=== PATIENT | male | born 1965 | race Two or more races ===

== ENCOUNTER 2019-07-07 12:06 | Inpatient (IN) | payer BC ==
[2019-07-07 15:08] VITALS: BMI 20.2
--- NOTE | 2019-07-07 16:07 | HP ---
"COWS - Scale Resting Pulse: 1= MA 81-100 Sweatin=Flushed/Facial Moisture Restless Observation: 0= Sits Still Pupil Size: 2= Moderately Dilated (Pupils = 4 mm) Bone or Joint Aches: 0= None Runny Nose/ Eye Tearin= Nasal Congestion GI Upset > 30mins: 0= None Tremor Observation: 2= Slight Tremor Visible Yawning Observation: 0= None Anxiety or Irritability: 1=Feels Anxious/Irritable Goose Flesh Skin: 0=Smooth Skin COWS Score: 9 CIWA Score Nausea/Vomitin-No Nausea/No Vomiting Muscle Tremors: 3 Anxiety: 3 Agitation: 3 Paroxysmal Sweats: 3 Orientation: 0-Oriented Tacttile Disturbances: 0-None Auditory Disturbances: 0-None Visual Disturbances: 0-None Headache: 0-None Present CIWA-Ar Total Score: 12 - Admission Criteria OAS Guidelines: Admission for Medically Managed Detox: Requires at least one of the followin. CIWA greater than 12 2. Seizures within the past 24 hours 3. Delirium tremens within the past 24 hours 4. Hallucinations within the past 24 hours 5. Acute intervention needed for co occurring medical disorder 6. Acute intervention needed for co occurring psychiatric disorder 7. Severe withdrawal that cannot be handled at a lower level of care (continued vomiting, continued diarrhea, abnormal vital signs) requiring intravenous medication and/or fluids 8. Patient presents the following: CIWA greater than 12 Admission Criteria Met: Admission criteria met Admission ROS [facility] Chief Complaint: I'm having heroin withdrawal. I feel sick. Allergies/Adverse Reactions: Allergies Allergy/AdvReac Type Severity Reaction Status Date / Time No Known Allergies Allergy Verified 07/07/19 15:01 History of Present Illness: 53 yo presents w/ heroin withdrawal and seeking detox. DEBBY: 0.010 UTox: THC/GAVIOTA/OPI Alcohol use began at age 30. Currently drinks 4-5 32 oz beers daily. Heroin use began at age 30. Currently uses 10 bags, nasally. Denies hx overdose. States last used at 9 am. Crack use began at age 40. Currently 4-5 bags daily. Marijuana use began at age 20's. Daily use. Nicotine use began at age 20. 2-3 cig/day. Denies seizures. Occ blackouts. Last time 6 months ago. Stopped while incarcerated x 6 months, 5 years ago. PMHx: Denies MHHx: Denies depression or other MH problems. Denies thoughts of harming self or others. Search Terms: SONNY MORAN, 1965 Search Date: 07/07/2019 04:02:32 PM The Drug Utilization Report below displays all of the controlled substance prescriptions, if any, that your patient has filled in the last twelve months. The information displayed on this report is compiled from pharmacy submissions to the Department, and accurately reflects the information as submitted by the pharmacies. This report was requested by: Susan Biswas | Reference #: [id number] There are no results for the search terms that you entered. Search Terms: Sonny Moran, 1965 Search Date: 07/07/2019 03:56:40 PM States Searched: [place], [place], [place], [place], [place], [place], [place] The Drug Utilization Report below displays the controlled substance prescriptions, if any, that were dispensed in the indicated state(s). The information displayed on this report is compiled from requests submitted to other states' PMPs, and accurately reflects the information as returned by them. Blank vann indicate data not provided by other state. This report was requested by: Susan Biswas | Reference #: [id number] Exam Limitations: No Limitations - Ebola screening Have you traveled outside of the country in the last 21 days: No Have you had contact with anyone from an Ebola affected area: No Do you have a fever: No - Review of Systems Constitutional: Chills EENT: reports: Blurred Vision, Dental Problems (Missing/messed up. Chews and swallows ok.) Respiratory: reports: No Symptoms reported Cardiac: reports: No Symptoms Reported GI: reports: No Symptoms Reported : reports: No Symptoms Reported Musculoskeletal: reports: No Symptoms Reported Integumentary: reports: No Symptoms Reported Neuro: reports: No Symptoms reported Endocrine: reports: No Symptoms Reported Hematology: reports: No Symptoms Reported Psychiatric: reports: Orientated x3, Anxious Patient History - PPD History Previous Implant?: Yes (Will order TB Gold test) Documented Results: Negative w/o proof Implanted On Prior [facility] Admission?: No PPD to be Administered?: No - Smoking Cessation Smoking history: Current every day smoker Have you smoked in the past 12 months: Yes Aproximately how many cigarettes per day: 3 Hx Chewing Tobacco Use: No Initiated information on smoking cessation: Yes 'Breaking Loose' booklet given: 07/07/19 - Substance & Tx. History Hx Alcohol Use: Yes Hx Substance Use: Yes Substance Use Type: Alcohol, Cocaine, Heroin Hx Substance Use Treatment: Yes (detox, rehab, past [facility]) - Substances abused Heroin Substance route: Inhalation Frequency: Daily Amount used: 10bags Age of first use: 30 Date of last use: 07/07/19 Alcohol Substance route: Oral Frequency: Daily Amount used: beer- 3 40oz cans Age of first use: 30 Date of last use: 07/07/19 Crack Substance route: Smoking Frequency: Daily Amount used: $40 Age of first use: 30 Date of last use: 07/06/19 Admission Physical Exam [facility] - Vital Signs Vital Signs: Vital Signs - 24 hr 07/07/19 07/07/19 14:58 15:27 Temperature 97.7 F 97.7 F Pulse Rate 81 81 Respiratory 18 18 Rate Blood Pressure 118/72 118/72 - Physical General Appearance: Yes: Mild Distress, Thin, Tremorous (Faint tremors), Sweating (Increased facial moistute), Anxious HEENTM: Yes: Hearing grossly Normal, Normocephalic, Normal Voice, LEDY (Pupils = 4 mm), Pharynx Normal, Nasal Congestion Respiratory: Yes: Lungs Clear, Normal Breath Sounds, No Respiratory Distress Neck: Yes: No masses,lesions,Nodules, Supple Breast: Yes: Breast Exam Deferred Cardiology: Yes: Regular Rhythm, Regular Rate, S1, S2 Abdominal: Yes: Non Tender, Flat, Soft, Increased Bowel Sounds Genitourinary: Yes: Within Normal Limits Back: Yes: Within Normal Limits Musculoskeletal: Yes: full range of Motion, Gait Steady Extremities: Yes: Normal Capillary Refill, Tremors (faint tremors) Neurological: Yes: Fully Oriented, Alert, Motor Strength 5/5, Normal Response Integumentary: Yes: Normal Color, Warm Lymphatic: Yes: Within Normal Limits - Diagnostic (1) Alcohol dependence with uncomplicated withdrawal Current Visit: Yes Status: Acute (2) Opioid dependence with withdrawal Current Visit: Yes Status: Acute (3) Nicotine dependence, uncomplicated Current Visit: Yes Status: Acute (4) Cocaine dependence, uncomplicated Current Visit: Yes Status: Acute (5) Cannabis abuse, uncomplicated Current Visit: Yes Status: Chronic Cleared for Admission [facility] - Detox or Rehab [facility] Level of Care: Medically Managed Detox Regimen/Protocol: Methadone/Librium Claeared for Rehab Admission: No Breathalyzer - Breathalyzer Breathalyzer: 0.010 Urine Drug Screen - Test Device Lot number: [id number] Expiration date: 03/23/20 - Control Is test valid?: Yes - Results Drug screen NEGATIVE: No Urine drug screen results: THC-Marijuana, GAVIOTA-Cocaine, MOP-Opiates Inpatient Rehab Admission - Rehab Decision to Admit Inpatient rehab admission?: No"
[2019-07-07] MEDS ORDERED: MAGNESIUM HYDROX 2400MG/30ML ORAL SUSPENSION 30 ML CUP PO PRN (16:37)
[2019-07-07] MEDS ORDERED: MAGNESIUM CITRATE 300 ML BOTTLE PO PRN (16:37)
[2019-07-07] MEDS ORDERED: IBUPROFEN 400 MG TABLET (FP) PO PRN (16:37)
[2019-07-07] MEDS ORDERED: NICOTINE POLACRILEX 2 MG GUM BUC PRN (16:37)
[2019-07-07] MEDS ORDERED: MAG HYDROX/AL HYDROX/SIMETH 30 ML UNIT-DOSE CUP PO PRN (16:37)
[2019-07-07] MEDS ORDERED: METHOCARBAMOL 500 MG TABLET PO PRN (16:37)
[2019-07-07] MEDS ORDERED: BISMUTH SUBSALICYLATE 524 MG/30 ML UD PO PRN (16:37)
[2019-07-07] MEDS ORDERED: MELATONIN 5 MG TABLETS PO PRN (16:37)
[2019-07-07] MEDS ORDERED: ACETAMINOPHEN 325 MG TABLET (FP) PO PRN ×2 (16:37)
[2019-07-07] MEDS ORDERED: MENTHOL/PHENOL 1 EACH UD MM PRN (16:37)
[2019-07-07] MEDS ORDERED: METHADONE HCL 10 MG TABLET (FOR DETOX USE ONLY) PO ONE (18:00)
[2019-07-07] MEDS: cloNIDine HCL 0.1 MG TABLET PO PRN (20:40)
[2019-07-07] MEDS: THIAMINE HCL 100 MG TABLET (FP) PO SCH (22:18)
[2019-07-07] MEDS: chlordiazePOXIDE HCL 25 MG CAPSULE PO SCH (22:18)
[2019-07-08] MEDS: chlordiazePOXIDE HCL 25 MG CAPSULE PO SCH ×3 (05:11→21:44)
[2019-07-08] MEDS: PRENATAL VITAMINS W/ FOLIC ACID TABLET (FP) PO SCH (09:59)
[2019-07-08] MEDS ORDERED: METHADONE HCL 5 MG TABLET (FOR DETOX USE ONLY) PO ONE (10:00)
[2019-07-08 10:08] LABS: HEMATOCRIT 44.1 % (35.4-49); HEMOGLOBIN 14.8 GM/dL (11.7-16.9); MCH 33.2 pg (25.7-33.7); MCHC 33.6 g/dl (32.0-35.9); MEAN CELL VOLUME 98.9 fl (80-96); MEAN PLT VOLUME 8.6 fl (7.5-11.1); PLATELET COUNT 221 K/MM3 (134-434); RBC 4.46 M/mm3 (4.00-5.60); WHITE BLOOD COUNT 5.7 K/mm3 (4.0-10.0)
[2019-07-08 10:12] LABS: ALBUMIN 3.6 g/dl (3.4-5.0); BILIRUBIN,TOTAL 1.7 mg/dL (0.2-1); BLOOD UREA NITROGEN 13.2 mg/dL (7-18); CALCIUM 9.5 mg/dL (8.5-10.1); CREATININE 1.2 mg/dL (0.55-1.3); POTASSIUM 4.4 mmol/L (3.5-5.1); TOT PROT 7.2 g/dl (6.4-8.2)
--- NOTE | 2019-07-08 10:25 | PN ---
S CIWA - CIWA Score Nausea/Vomitin-Mild Nausea/No Vomiting Muscle Tremors: 2 Anxiety: 3 Agitation: 0-Normal Activity Paroxysmal Sweats: 3 Orientation: 0-Oriented Tacttile Disturbances: 0-None Auditory Disturbances: 0-None Visual Disturbances: 0-None Headache: 2-Mild CIWA-Ar Total Score: 11 [facility] COWS - Scale Resting Pulse: 1= [place] 81-100 Sweatin= Beads of Sweat on Face Restless Observation: 1= Difficult to Sit Still Pupil Size: 0= Normal to Room Light Bone or Joint Aches: 1= Mild Discomfort Runny Nose/ Eye Tearin= None GI Upset > 30mins: 1= Stomach Cramp Tremor Observation of Outstretched Hands: 2= Slight Tremor Visible Yawning Observation: 1= 1-2x During Session Anxiety or Irritability: 2=Irritable/Anxious Goose Flesh Skin: 0=Smooth Skin COWS Score: 12 S Progress Note (SOAP) Subjective: c/o nausea, headache, anxiety, irritability, and muscle aches. Objective: 07/08/19 10:25 Vital Signs 07/08/19 07/08/19 07/08/19 03:30 08:20 09:41 Temperature 99.5 F 98.2 F Pulse Rate 82 70 Respiratory 18 18 20 Rate Blood Pressure 123/88 164/93 Lab Results WBC 5.7 K/mm3 (4.0-10.0) 07/08/19 07:00 RBC 4.46 M/mm3 (4.00-5.60) 07/08/19 07:00 Hgb 14.8 GM/dL (11.7-16.9) 07/08/19 07:00 Hct 44.1 % (35.4-49) 07/08/19 07:00 MCV 98.9 fl (80-96) H 07/08/19 07:00 MCHC 33.6 g/dl (32.0-35.9) 07/08/19 07:00 RDW 15.0 % (11.9-15.9) 07/08/19 07:00 Plt Count 221 K/MM3 (134-434) 07/08/19 07:00 Sodium 139 mmol/L (136-145) 07/08/19 07:00 Potassium 4.4 mmol/L (3.5-5.1) 07/08/19 07:00 Chloride 101 mmol/L (98-107) 07/08/19 07:00 Carbon Dioxide 32 mmol/L (21-32) 07/08/19 07:00 Anion Gap 5 MMOL/L (8-16) L 07/08/19 07:00 BUN 13.2 mg/dL (7-18) 07/08/19 07:00 Creatinine 1.2 mg/dL (0.55-1.3) 07/08/19 07:00 Random Glucose 91 mg/dL (74-106) 07/08/19 07:00 Calcium 9.5 mg/dL (8.5-10.1) 07/08/19 07:00 Labs noted. Assessment: 07/08/19 10:25 AOX3, in no respiratory distress. Full ROM, ambulating in the unit. withdrawal symptoms. Elevated BP 07/08/19 10:26 Plan: continue detox. Give clonidine prn.
--- NOTE | 2019-07-08 13:05 | EKG ---
Test Reason : Blood Pressure : / mmHG Vent. Rate : 063 BPM Atrial Rate : 063 BPM P-R Int : 160 ms QRS Dur : 094 ms QT Int : 426 ms P-R-T Axes : 074 -63 063 degrees QTc Int : 435 ms NORMAL SINUS RHYTHM POSSIBLE LEFT ATRIAL ENLARGEMENT LEFT ANTERIOR FASCICULAR BLOCK LEFT VENTRICULAR HYPERTROPHY PEAKED T WAVES, CLINICAL CORRELATION REQUIRED ABNORMAL ECG NO PREVIOUS ECGS AVAILABLE Confirmed by BOLA VALDEZ, HEAVEN ([id number]) on 07/08/2019 1:04:30 PM Referred By: SUHA SULLIVAN Confirmed By:HEAVEN PLAZA MD
--- NOTE | 2019-07-08 13:17 | PN ---
[facility] Progress Note Note: Pt c/o n/v x1, Tigan 200mg im once prescribed.
[2019-07-08] MEDS ORDERED: TRIMETHOBENZAMIDE HCL 200MG/2ML INJ IM ONE (14:00)
[2019-07-08] MEDS: cloNIDine HCL 0.1 MG TABLET PO PRN ×2 (17:23→19:57)
[2019-07-08] MEDS: chlordiazePOXIDE HCL 10 MG CAPSULE PO PRN (17:23)
[2019-07-08] MEDS: THIAMINE HCL 100 MG TABLET (FP) PO SCH (21:44)
[2019-07-08] MEDS ORDERED: cloNIDine HCL 0.1 MG TABLET PO PRN (23:22)
[2019-07-09] MEDS: chlordiazePOXIDE HCL 10 MG CAPSULE PO PRN (01:21)
[2019-07-09] MEDS: chlordiazePOXIDE 5 MG CAPSULE PO SCH ×3 (05:16→22:06)
[2019-07-09] MEDS ORDERED: cloNIDine HCL 0.1 MG TABLET PO ONE (07:16)
[2019-07-09] MEDS: ONDANSETRON *ODT* 4 MG TABLET SL PRN ×2 (07:40→13:35)
[2019-07-09] MEDS ORDERED: METHADONE HCL 10 MG TABLET (FOR DETOX USE ONLY) PO ONE (10:00)
[2019-07-09] MEDS: PRENATAL VITAMINS W/ FOLIC ACID TABLET (FP) PO SCH (10:47)
--- NOTE | 2019-07-09 11:19 | PN ---
S CIWA - CIWA Score Nausea/Vomitin Muscle Tremors: 2 Anxiety: 3 Agitation: 0-Normal Activity Paroxysmal Sweats: 3 Orientation: 0-Oriented Tacttile Disturbances: 0-None Auditory Disturbances: 0-None Visual Disturbances: 0-None Headache: 1-Very Mild CIWA-Ar Total Score: 11 B[facility] COWS - Scale Resting Pulse: 1= [place] 81-100 Sweatin= Chills/Flushing Restless Observation: 1= Difficult to Sit Still Pupil Size: 0= Normal to Room Light Bone or Joint Aches: 2= Severe Diffuse Aches Runny Nose/ Eye Tearin= None GI Upset > 30mins: 1= Stomach Cramp Tremor Observation of Outstretched Hands: 2= Slight Tremor Visible Yawning Observation: 1= 1-2x During Session Anxiety or Irritability: 2=Irritable/Anxious Goose Flesh Skin: 0=Smooth Skin COWS Score: 11 S Progress Note (SOAP) Subjective: c/o nausea and vomiting x1, headache, sweats, stomach cramp, and shakes. Objective: 07/09/19 11:17 Vital Signs 07/09/19 07/09/19 07/09/19 06:00 06:05 07:00 Temperature 100.2 F H 99.9 F H Pulse Rate 84 85 82 Respiratory 22 H 22 H 20 Rate Blood Pressure 208/78 H 161/114 H 188/114 H 07/09/19 07/09/19 07:05 09:41 Temperature 97.3 F L Pulse Rate 83 81 Respiratory 18 16 Rate Blood Pressure 176/108 H 158/119 H Assessment: 07/09/19 11:18 AOX3, in no acute respiratory distress. Full ROM, ambulating in the unit. Withdrawal symptoms. Elevated BP 07/09/19 11:20 Plan: continue detox. continue with zofran prn for n/v. continue with clonidine prn for elevated bp.
[2019-07-09] MEDS: cloNIDine HCL 0.1 MG TABLET PO PRN (13:34)
[2019-07-09 15:23] VITALS: BP 147/99; PULSE 83; TEMP 100.4
--- NOTE | 2019-07-09 15:50 | PN ---
S Progress Note Note: S: I was called by the RN to see this 53year old with elevated bp. Pt was seen in his room lying in bed in no acute respiratory distress. Pt c/o n/v x2, muscle aches, chills, sweats, anxiety, fatigue and malaise. O: Vital Signs 07/09/19 07/09/19 07/09/19 09:41 14:12 15:20 Temperature 97.3 F L 99.1 F 100.4 F H Pulse Rate 81 79 83 Respiratory 16 20 18 Rate Blood Pressure 158/119 H 159/101 H 147/99 Noted temp to be trending up/elevated bp. A: Severe withdrawal symptoms. Pt is alert and oriented x3 and in no acute respiratory distress. P: Send pt to [facility] for Evaluation. verbal report given to Dr. Cunningham at [facility].
[2019-07-09] MEDS: THIAMINE HCL 100 MG TABLET (FP) PO SCH (22:06)
[2019-07-10] MEDS ORDERED: chlordiazePOXIDE HCL 10 MG CAPSULE PO PRN
[2019-07-10] MEDS ORDERED: chlordiazePOXIDE HCL 10 MG CAPSULE PO SCH (05:00)
[2019-07-10] MEDS ORDERED: METHADONE HCL 5 MG TABLET (FOR DETOX USE ONLY) PO ONE (06:00)
[2019-07-11] MEDS ORDERED: chlordiazePOXIDE HCL 10 MG CAPSULE PO ONE (05:00)
== END 2019-07-10 08:30 | disposition short-term general hospital (02) | DRG 773 ==
LOC: YASAS 12:06 → Y6N 17:25
PROVIDERS: ADMIT Surgery; ATTEND Surgery
PROC: HZ2ZZZZ Detoxification Services for Substance Abuse Treatment (ICD-10-PCS; principal; 2019-07-07)
DX: F11.23 Opioid dependence with withdrawal (principal); F10.230 Alcohol dependence with withdrawal, uncomplicated; F14.20 Cocaine dependence, uncomplicated; F12.10 Cannabis abuse, uncomplicated; F17.210 Nicotine dependence, cigarettes, uncomplicated
CPT/HCPCS: 36415; 80053; 85027; 86480; 86593; 93005; 93010; J0735; Q0162

== ENCOUNTER 2019-07-09 16:26 | Inpatient (IN) | payer BC ==
[2019-07-09] MEDS ORDERED: SODIUM CHLORIDE 0.9% 500 ML INFUS.BAG IV ONE ×3 (17:58→22:18)
--- NOTE | 2019-07-09 18:06 | PDOC ---
History of Present Illness - General Chief Complaint: Blood Pressure Problem Stated Complaint: FEVER Time Seen by Provider: 07/09/19 17:22 History Source: Patient Exam Limitations: No Limitations - History of Present Illness Initial Comments: 07/09/19 18:05 Sonny Camara is a 53M with PMH of opioid and cocaine use disorder presenting from [facility] with fever and malaise. Patient entered into rehab 2 days prior for daily opioid and crack cocaine use. Last night into today reports fever and 7/10 whole-body myalgias with nausea and multiple episodes of non-bloody vomiting. Has had poor appetite since 2 days ago, gets hungry but has nausea with attempting to eat. Says he had chest pain but only while vomiting. Has lightheadedness and room-spinning vertigo. Denies SOB, LOC, abd pain, urinary sx, constipation, diarrhea, headache. Prior to admission to rehab reports daily crack pipe usage and oxycodone usage. Denies all IV drug use, denies recent alcohol use, denies drug use while in rehab. Says he received 10mg of an unknown medication for withdrawal in [facility] today. Past History - Past Medical History Allergies/Adverse Reactions: Allergies Allergy/AdvReac Type Severity Reaction Status Date / Time No Known Allergies Allergy Verified 07/09/19 16:40 Home Medications: Ambulatory Orders Methadone (Detox) 07/09/19 Asthma: No Cardiac Disorders: No COPD: No Diabetes: No GI Disorders: No Seizures: Yes (DRUG RELATED) - Reproductive History Testicular Surgery: No - Immunization History Immunization Up to Date: No - Suicide/Smoking/Psychosocial Hx Smoking History: Current every day smoker Have you smoked in the past 12 months: Yes Number of Cigarettes Smoked Daily: 3 Information on smoking cessation initiated: No 'Breaking Loose' booklet given: 07/07/19 Hx Alcohol Use: Yes (DAILY) Drug/Substance Use Hx: Yes (HEROIN) Substance Use Type: Alcohol, Cocaine, Heroin Hx Substance Use Treatment: Yes (detox, rehab, past [facility]) Review of Systems - Review of Systems Constitutional: Yes: Chills, Fever, Malaise HEENTM: No: Blurred Vision, Hearing Loss, Dental Problems, Difficulty Swallowing Respiratory: No: Cough, Orthopnea, Shortness of Breath, Wheezing Cardiac (ROS): Yes: Chest Pain, Lightheadedness. No: Irregular Heart Rate ABD/GI: Yes: Nausea, Vomiting (non-bloody). No: Constipated, Diarrhea : No: Burning, Dysuria, Discharge, Frequency Musculoskeletal: Yes: Muscle Pain (whole body). No: Back Pain, Joint Swelling Integumentary: No: Symptoms Reported Neurological: Yes: Weakness Endocrine: No: Symptoms Reported Hematologic/Lymphatic: No: Symptoms Reported All Other Systems: Reviewed and Negative *Physical Exam - Vital Signs Last Vital Signs Temp Pulse Resp BP Pulse Ox 98.9 F 74 18 114/79 100 07/09/19 16:42 07/09/19 16:42 07/09/19 16:42 07/09/19 16:42 07/09/19 16:42 - Physical Exam General Appearance: Yes: Nourished, Appropriately Dressed, Disheveled, Thin. No : Apparent Distress HEENT: positive: EOMI, LEDY (3 to 2mm), Normal Voice, Symmetrical. negative: Pale Conjunctivae, Scleral Icterus (R), Scleral Icterus (L), Tonsillar Exudate, Rhinorrhea, Excessive drooling Neck: positive: Supple. negative: Tender, Lymphadenopathy (R), Lymphadenopathy (L) Respiratory/Chest: positive: Lungs Clear, Normal Breath Sounds. negative: Chest Tender, Respiratory Distress, Accessory Muscle Use, Crackles, Rales, Rhonchi Cardiovascular: positive: Regular Rhythm, Regular Rate Gastrointestinal/Abdominal: positive: Normal Bowel Sounds, Tender (epigastric), Flat, Soft. negative: Organomegaly, Hernia, Mass Musculoskeletal: positive: Normal Inspection. negative: CVA Tenderness Extremity: positive: Normal Capillary Refill, Normal Inspection, Normal Range of Motion. negative: Tender Integumentary: positive: Normal Color, Dry, Warm, Other Neurologic: positive: Fully Oriented, Alert, Normal Mood/Affect, Normal Response ED Treatment Course - LABORATORY CBC & Chemistry Diagram: 07/09/19 18:30 07/10/19 10:26 Medical Decision Making - Medical Decision Making 07/09/19 18:46 Sonny Camara is a 53M with PMH of opioid and cocaine use disorder presenting from [facility] with fever and malaise. Patient reports flu-like symptoms in the context of recent cocaine and opioid detox, consistent with withdrawal symptoms. Also concerned about PNA vs. endocarditis vs. UTI vs. ballbladder disease. Evaluated via CMP, CBC, lipase, CPK, ECG, and UA/UC/Utox. Started 1L NS. Called [facility], patient has received 10mg Librium, 10mg oxycodone, 650mg Tylenol for pain, 8mg Zofran for nausea today. 07/09/19 20:31 Utox positive for marijuana, cocaine, benzos, opioids, methadone. Labs show Na 133, Cr 1.6, and elevated hematology values consistent with CAYETANO 2/ 2 dehydration and vomiting. Started 2nd 1L NS bolus to correct Na and CAYETANO. 07/09/19 20:51 Drinking water, but still feels malaised and asking for more methadone to help with withdrawal. Advised that cannot give more methadone today. 07/09/19 22:29 Gave crackers and apple juice, patient tolerated without vomiting. CKB 546 consistent with cocaine use, troponin negative. Giving Maalox, Pepcid, and 3rd 1L NS. 07/09/19 23:49 POCUS gallbladder performed, no abnormal findings noted. Patient stable and not vomiting, has had 2L NS already. Rechecking CMP and CPK to reassess renal function for dispo planning. 07/10/19 02:50 Repeat CMP shows worsening Cr despite fluid bolus, will admit for CAYETANO in the setting of recent cocaine usage. CPK down to 400s and Na improved to 137 after 3L NS. Patient remains stable, BP 150s/80s, breathing well on room air, resting comfortably in bed. Requests more Librium and methadone but unable to give at this time due to taper schedule; however, clonidine a possibility for withdrawal sx. 07/10/19 03:14 Discussed sign-out with Dr. Calero, plan for admission overnight to floor. *DC/Admit/Observation/Transfer Diagnosis at time of Disposition: Cocaine dependence, uncomplicated, CAYETANO (acute kidney injury) - Referrals - Patient Instructions - Post Discharge Activity
--- NOTE | 2019-07-09 18:51 | PDOC ---
Documentation entered by Andrade Garza SCRIBE, acting as scribe for Hilda Max MD. Hilda Max MD: This documentation has been prepared by the Kayla cosme Xhesika, SCRIBE, under my direction and personally reviewed by me in its entirety. I confirm that the documentation accurately reflects all work, treatment, procedures, and medical decision making performed by me. Attending Attestation - Resident Resident Name: Michael Shelley - ED Attending Attestation I have performed the following: I have examined & evaluated the patient, The case was reviewed & discussed with the resident, I agree w/resident's findings & plan, Exceptions are as noted - HPI HPI: 07/09/19 18:51 The patient is a 53 year old male with a significant PMH of opioid and crack/ cocaine abuse who presents to the emergency department from [facility] with nausea, multiple episodes of nbnb vomiting, fever, and myalgia x 2 days. Patient states he started detox on Friday and since then started endorsing these symptoms associated with decreased appetite and low blood pressure. Patient states he received Zofran and Tylenol with mild relief of symptoms. As per [facility] notes, the patient has been receiving methadone 30, 20, then 10 mg consecutive days. The patient denies chest pain, shortness of breath, headache and dizziness. Denies fever, chills, cough, diarrhea and constipation. Denies dysuria, frequency, urgency and hematuria. Allergies: NKDA - Physicial Exam PE: 07/09/19 18:23 awake drowsy, dry mucous membranes, lungs clear bilat heart rrr no mrg abd soft nt nd ext wwp. no edema no calf tenderness. nuero alert oriented. - Medical Decision Making 07/09/19 18:23 53 yo male h/o heroin, cocaine abuse, in detox 2 days, here with intractable n/ v low blood pressure pt c/o subjective fevers, chills myalgia. denies recent use. last use 2 days ago prior to going to detox. has been using for years. no urinary difficulty pain epigastric region. was given methadone 10 mg and librium 10 mg zofran and tylenol. pt denies drug use while at [facility], was given methdone 30, 20, then 10 mg consecutive days. 07/09/19 18:25 differential dehydration heroin withdrawal likely. pancreatitis. cholecysitits cholelithiasis. pt afebrile here. will continue hydration, zofran, pepcid maalox. 07/09/19 20:03 pt with ARF creatinine 1.6 will hydrate. check CK r/o rhabdomyolysis from cocaine use. 07/10/19 02:50 pt creatinine increased will admit arf Heart Score/ECG Review #1 General ECG Interpretation: Sinus Rhythm, Normal Rate (77), Normal Intervals, No acute ischemic changes Compared to previous ECG there are: Other (atrial enlargment, left axis,)
[2019-07-09 18:58] LABS: BASO % 0.4 % (0-2.0); HEMATOCRIT 51.5 % (35.4-49); HEMOGLOBIN 17.3 GM/dL (11.7-16.9); LYMPH % 20.6 % (8-40); MCH 32.8 pg (25.7-33.7); MCHC 33.6 g/dl (32.0-35.9); MEAN CELL VOLUME 97.5 fl (80-96); MEAN PLT VOLUME 9.1 fl (7.5-11.1); PLATELET COUNT 264 K/MM3 (134-434); RBC 5.28 M/mm3 (4.00-5.60); RDW 14.6 % (11.9-15.9); WHITE BLOOD COUNT 9.8 K/mm3 (4.0-10.0)
[2019-07-09 19:16] LABS: ALK PHOS 95 U/L (45-117); ANION GAP 9 MMOL/L (8-16); BILIRUBIN,TOTAL 1.9 mg/dL (0.2-1); BLOOD UREA NITROGEN 20.8 mg/dL (7-18); CALCIUM 10.3 mg/dL (8.5-10.1); CHLORIDE 95 mmol/L (98-107); CO2 29 mmol/L (21-32); CREATININE 1.6 mg/dL (0.55-1.3); GLUCOSE,RANDOM 135 mg/dL (74-106); LIPASE 117 U/L (73-393); MAGNESIUM 2.2 mg/dL (1.8-2.4); SGOT/AST 27 U/L (15-37); SGPT/ALT 19 U/L (13-61); SODIUM 133 mmol/L (136-145); TOT PROT 8.2 g/dl (6.4-8.2)
[2019-07-09 19:41] LABS: INR 1.08 (0.83-1.09); PROTHROMBIN TIME (PATIENT) 12.7 SEC (9.7-13.0)
[2019-07-09 19:44] LABS: ACTIVATED PTT 33.2 SECONDS (25.2-36.5)
[2019-07-09 20:16] LABS: PHENCYCLIDINE,URINE NEGATIVE ng/ml (CUTOFF=25); URINE AMPHETAMINES NEGATIVE ng/ml (CUTOFF=500); URINE BARBITURATES NEGATIVE ng/ml (CUTOFF=200)
[2019-07-09 20:24] LABS: COCAINE, UR POSITIVE ng/ml (CUTOFF=300); OPIATES, URI POSITIVE ng/ml (CUTOFF=300); URINE BENZODIAZEPINES POSITIVE ng/ml (CUTOFF=200)
[2019-07-09 20:25] LABS: METHADONE, UR POSITIVE ng/ml (CUTOFF=300)
[2019-07-10 02:30] LABS: ALBUMIN 3.9 g/dl (3.4-5.0); BILIRUBIN,TOTAL 2.2 mg/dL (0.2-1); BLOOD UREA NITROGEN 18.6 mg/dL (7-18); CALCIUM 9.4 mg/dL (8.5-10.1); CREATININE 1.5 mg/dL (0.55-1.3); POTASSIUM 4.4 mmol/L (3.5-5.1); TOT PROT 7.7 g/dl (6.4-8.2)
--- NOTE | 2019-07-10 03:37 | PN ---
Teaching Attending Note Name of Resident: Denis Kate ATTENDING PHYSICIAN STATEMENT I saw and evaluated the patient. I reviewed the resident's note and discussed the case with the resident. I agree with the resident's findings and plan as documented. SUBJECTIVE: Patient is a 53 year old man with a PMH of Tobacco use, Opioid and Crack/ cocaine abuse who presents to the ER from [facility] with nausea, multiple episodes of vomiting, fever and myalgia for 2 days. Patient states he started Detox on Friday and since then started endorsing these symptoms associated with decreased appetite and low blood pressure. Patient states he received Zofran and Tylenol with mild relief of symptoms. As per [facility] notes, the patient has been receiving methadone 30, 20, then 10 mg consecutive days. Prior to admission to rehab reports daily crack pipe usage and oxycodone usage. Denies all IV drug use, denies recent alcohol use, denies drug use while in rehab. Says he received 10mg of a medication in [facility] today. The patient denies chest pain, shortness of breath, headache and dizziness. Denies fever, chills, cough, diarrhea and constipation. Denies dysuria, frequency, urgency and hematuria. OBJECTIVE: Alert Vital Signs Period Temp Pulse Resp BP Sys/Garcia Pulse Ox Last 24 Hr 98.9 F 68-74 18-20 114-169/79-105 99-100 HEENT: No Jaundice, eye redness or discharge, PERRLA, EOMI. Normocephalic, atraumatic. External ears are normal and hearing is grossly intact. No nasal discharge. Neck: Supple, nontender. No palpable adenopathy or thyromegaly. No JVD Chest: Good effort. Clear to auscultation and percussion. Heart: Regular. No S3, rub or murmur Abdomen: Not distended, soft, mild epigastric tenderness and no HSM. No rebound or guarding. Normal bowel sounds. Ext: Peripheral pulses intact. No leg edema. Skin: Warm and dry. No petechiae, rash or ecchymosis. Neuro: Alert. Oriented x3. CN 2-12 grossly intact. No tremors or asterexis. Sensation grossly intact in all four extremities and DTR are symmetric. Psych: Appropriate mood and affect. Good insight. Home Medications Medication Instructions Recorded Methadone (Detox) 07/09/19 Abnormal Lab Results 07/09/19 07/09/19 07/09/19 01:50 18:30 18:30 Hgb 17.3 H Hct 51.5 H D MCV 97.5 H Monocytes % 11.0 H Sodium 133 L Chloride 95 L Anion Gap 7 L BUN 18.6 H 20.8 H Creatinine 1.5 H 1.6 H Random Glucose 118 H 135 H Calcium 10.3 H Total Bilirubin 2.2 H 1.9 H Creatine Kinase 471 H 564 H Opiates Screen Methadone Screen Benzodiazepines Screen Cocaine Screen U Marijuana (THC) Screen 07/09/19 18:30 Hgb Hct MCV Monocytes % Sodium Chloride Anion Gap BUN Creatinine Random Glucose Calcium Total Bilirubin Creatine Kinase Opiates Screen Positive A* Methadone Screen Positive A* Benzodiazepines Screen Positive A* Cocaine Screen Positive A* U Marijuana (THC) Screen Positive A* ASSESSMENT AND PLAN: 1. CAYETANO/Polysubstance and Alcohol abuse - Urine toxicology screen was positive for opiates, methadone, benzodiazepines, cocaine and marijuana. EKG shows NSR with no significant ST-T wave changes. No acute abnormality on CXR. CAYETANO likely partly due to drug-induced rhabdomyolysis. Will get CT abdomen to investigate the hepatobiliary tract/pancreas and kidneys; give IV ringers lactate at 125 ml/ hour, get urinalysis, trend CPK and monitor urine output. Will avoid nephrotoxic agents such as NSAIDS, aminoglycosides, contrast dyes and certain Alternative medicine products. Monitor closely for drug/alcohol withdrawal. Implement [facility] librium alcohol withdrawal protocol and do neurochecks. Implement seizure, fall and aspiration precautions. Treat with thiamine and folic acid and monitor electrolytes (Ca,Mg, K,P). Counseled patient about abstaining from alcohol. Will consult [facility] principal solution specialist and refer to alcohol detox upon discharge. 2. Tobacco Use Counseled on risks associated with tobacco use. We will provide patient all the necessary assistance to facilitate smoking cessation and prescribe Nicotine patch. 3. Hypertension - Restart suitable outpatient antihypertensive drugs when clinically appropriate. Revise regimen to ensure [id number] excellent BP control and probation counselor patient on the injurious effects of uncontrolled hypertension. Nonpharmacologic measures to control hypertension like weight loss , salt restriction and exercise discussed. Importance of adherence to treatment regimen and attainment of normotension emphasized. 4. DVT prophylaxis - Heparin 5000u sq tid. 5. Advance directives - Full code
--- NOTE | 2019-07-10 03:53 | HP ---
CHIEF COMPLAINT: Acute drug detox PCP: pt would not provide HISTORY OF PRESENT ILLNESS: This is a 53 y/o M with a PMH significant for polysubstance abuse who presented to the ED from [facility] due to malaise and fever. Pt endorses to passing out on friday after having 40bags of cocaine, 2L of vodka, benzos, and IV heroin. He states he woke up at [facility] after this event. Pt is in process of being detox for alcohol at [facility] currently. Pt denies being on a methadone program. Pt is non-cooperative, limited hx and ROS. Patient proceeded to cry while being asked questions. Pt has a CIWA score of 11 and COWS score of 11. ER course was notable for: (1) UA tox positive for: benzos, cocaine, marijuana, opioids. (2) tigan 200mg IM given for nausea (3) Recent Travel: none PAST MEDICAL HISTORY: none other than polysubstance abuse PAST SURGICAL HISTORY: wasnt able to ascertain from pt Social History: Smoking: wasnt able to ascertain Alcohol: 2L of vodka a day Drugs: IVDA Family History: was not able to ascertain Allergies No Known Allergies Allergy (Verified 07/09/19 16:40) HOME MEDICATIONS: Home Medications Medication Instructions Recorded Methadone (Detox) 07/09/19 REVIEW OF SYSTEMS Negative except as above PHYSICAL EXAMINATION Vital Signs - 24 hr 07/09/19 07/09/19 07/09/19 16:42 21:44 21:56 Temperature 98.9 F Pulse Rate 74 Pulse Rate [ 74 Left Radial] Respiratory 18 Rate Blood Pressure 114/79 Blood Pressure 169/105 H 152/100 [Left Arm] O2 Sat by Pulse 100 99 Oximetry (%) 07/10/19 07/10/19 01:55 03:39 Temperature 98.2 F Pulse Rate Pulse Rate [ 68 68 Left Radial] Respiratory 20 20 Rate Blood Pressure Blood Pressure 169/98 150/87 [Left Arm] O2 Sat by Pulse 100 100 Oximetry (%) Physical Exam: Pt refused PE ASSESSMENT/PLAN: This is a 53 y/o M w a hx of polysubstance abuse who presented from [facility] with fever and malaise while detoxing. #Polysubstance abuse detox - ETOH/drug protocol - LR 125mL/hr - CT abd pelvis given high LFT's, tBili (2.2) in presence of abdominal pain and chills - trend cpk - UA ordered - seizure, fall, and aspiration precautions Dispo: monitoring on med surg FEN: LR 125mL/hr, monitor lytes, regular diet Visit type - Emergency Visit Emergency Visit: Yes ED Registration Date: 07/10/19 Care time: The patient presented to the Emergency Department on the above date and was hospitalized for further evaluation of their emergent condition. - New Patient This patient is new to me today: Yes Date on this admission: 07/10/19 - Critical Care Critical Care patient: No ATTENDING PHYSICIAN STATEMENT I saw and evaluated the patient. I reviewed the resident's note and discussed the case with the resident. I agree with the resident's findings and plan as documented. SUBJECTIVE: OBJECTIVE: ASSESSMENT AND PLAN:
[2019-07-10] MEDS ORDERED: ACETAMINOPHEN 325 MG TABLET (FP) PO ONE (04:51)
[2019-07-10] MEDS ORDERED: LACTATED RINGERS SOLUTION 1,000 ML IV SCH (05:00)
[2019-07-10 05:28] VITALS: BMI 19.3
[2019-07-10] MEDS: ONDANSETRON 4 MG/2 ML VIAL IVPB PRN (09:25)
[2019-07-10] MEDS ORDERED: chlordiazePOXIDE HCL 25 MG CAPSULE PO PRN (09:57)
[2019-07-10] MEDS ORDERED: chlordiazePOXIDE HCL 25 MG CAPSULE PO ONE ×2 (09:57→11:45)
[2019-07-10] MEDS ORDERED: chlordiazePOXIDE 5 MG CAPSULE PO PRN (10:04)
[2019-07-10] MEDS: ENOXAPARIN NA (PORCINE) 40 MG/0.4 ML DISP.SYRIN SQ SCH (10:12)
--- NOTE | 2019-07-10 10:13 | HOSP ---
Subjective - Review of Symptoms Events since last encounter: Vital Signs Temperature 98.2 F 07/10/19 05:24 Pulse Rate 90 07/10/19 05:24 Respiratory Rate 20 07/10/19 05:24 Blood Pressure 165/92 07/10/19 05:24 O2 Sat by Pulse Oximetry (%) 99 07/10/19 04:55 Patient is feeling nauseas, and since he drinks alcohol would like to have Librium , patient is withdrawing, his hands are shaking as per patient his last drink was 2 days ago. Kavin start him on Librium protocol with prn for bp chandler 140 and HR above 100. fall precaution Physical Examination Vital Signs: Vital Signs Temperature 98.2 F 07/10/19 05:24 Pulse Rate 90 07/10/19 05:24 Respiratory Rate 20 07/10/19 05:24 Blood Pressure 165/92 07/10/19 05:24 O2 Sat by Pulse Oximetry (%) 99 07/10/19 04:55 Labs: CBC, BMP 07/09/19 18:30 07/09/19 18:30
[2019-07-10] MEDS ORDERED: chlordiazePOXIDE HCL 25 MG CAPSULE PO SCH (11:00)
[2019-07-10 11:09] LABS: ALBUMIN 3.8 g/dl (3.4-5.0); BILIRUBIN,TOTAL 2.4 mg/dL (0.2-1); BLOOD UREA NITROGEN 16.5 mg/dL (7-18); CALCIUM 9.5 mg/dL (8.5-10.1); CREATININE 1.4 mg/dL (0.55-1.3); POTASSIUM 4.5 mmol/L (3.5-5.1); TOT PROT 7.6 g/dl (6.4-8.2)
[2019-07-10] MEDS: FOLIC ACID 1 MG TABLET (FP) PO SCH (11:40)
[2019-07-10] MEDS: SODIUM CHLORIDE 0.45% 1,000 ML IV SCH ×2 (11:41→22:42)
[2019-07-10] MEDS: THIAMINE HCL 100 MG TABLET (FP) PO SCH ×2 (11:41→21:57)
[2019-07-10] MEDS: METHADONE HCL 5 MG TABLET PO SCH (14:17)
[2019-07-10 14:24] LABS: EPI CELLS 7.4 /HPF (0-5/HPF); HYALINE CASTS 72 /lpf (0-8); URINE APPEARANCE CLEAR; URINE BACTERIA 85.3 /hpf (NEGATIVE); URINE BILIRUBIN NEGATIVE (NEGATIVE); URINE COLOR YELLOW; URINE GLUCOSE (UA) NEGATIVE (NEGATIVE); URINE KETONE NEGATIVE (NEGATIVE); URINE LEUK ESTERASE 1+ (NEGATIVE); URINE NITRITE NEGATIVE (NEGATIVE); URINE PROTEIN NEGATIVE (NEGATIVE); URINE RBC 0 /hpf (0-4); URINE WBC 2 /hpf (0-5)
[2019-07-10] MEDS ORDERED: amLODIPine BESYLATE 5 MG TABLET (FP) PO ONE (16:53)
[2019-07-10] MEDS: chlordiazePOXIDE HCL 25 MG CAPSULE PO SCH ×2 (17:07→22:00)
[2019-07-11] MEDS ORDERED: MELATONIN 5 MG TABLETS PO ONE (01:59)
[2019-07-11] MEDS: chlordiazePOXIDE HCL 25 MG CAPSULE PO SCH (04:01)
[2019-07-11] MEDS: ONDANSETRON 4 MG/2 ML VIAL IVPB PRN ×2 (05:58→12:00)
[2019-07-11] MEDS ORDERED: ONDANSETRON 4 MG TABLET PO ONE (06:07)
[2019-07-11] MEDS ORDERED: SODIUM CHLORIDE 0.45% 1,000 ML IV SCH (08:15)
[2019-07-11 09:33] LABS: BASO % 0.4 % (0-2.0); EOS % 0.1 % (0-4.5); HEMATOCRIT 48.6 % (35.4-49); HEMOGLOBIN 16.8 GM/dL (11.7-16.9); LYMPH % 20.7 % (8-40); MCH 33.8 pg (25.7-33.7); MCHC 34.6 g/dl (32.0-35.9); MEAN CELL VOLUME 97.6 fl (80-96); MEAN PLT VOLUME 8.6 fl (7.5-11.1); MONO % 10.4 % (3.8-10.2); NEUT % 68.4 % (42.8-82.8); PLATELET COUNT 232 K/MM3 (134-434); RBC 4.98 M/mm3 (4.00-5.60); RDW 14.2 % (11.9-15.9); WHITE BLOOD COUNT 7.4 K/mm3 (4.0-10.0)
[2019-07-11] MEDS: ENOXAPARIN NA (PORCINE) 40 MG/0.4 ML DISP.SYRIN SQ SCH (09:33)
[2019-07-11] MEDS: METHADONE HCL 5 MG TABLET PO SCH (09:34)
[2019-07-11] MEDS: THIAMINE HCL 100 MG TABLET (FP) PO SCH (09:34)
[2019-07-11] MEDS: FOLIC ACID 1 MG TABLET (FP) PO SCH (09:35)
[2019-07-11] MEDS ORDERED: amLODIPine BESYLATE 5 MG TABLET (FP) PO ONE (09:50)
[2019-07-11 09:52] LABS: ALBUMIN 3.9 g/dl (3.4-5.0); ALK PHOS 92 U/L (45-117); ANION GAP 10 MMOL/L (8-16); CALCIUM 9.8 mg/dL (8.5-10.1); CHLORIDE 98 mmol/L (98-107); CO2 28 mmol/L (21-32); CREATININE 1.3 mg/dL (0.55-1.3); GLUCOSE,RANDOM 101 mg/dL (74-106); SGOT/AST 19 U/L (15-37); SGPT/ALT 17 U/L (13-61); SODIUM 136 mmol/L (136-145); TOT PROT 7.8 g/dl (6.4-8.2)
[2019-07-11 10:01] LABS: CALCIUM 9.9 mg/dL (8.5-10.1); CREATININE 1.3 mg/dL (0.55-1.3); MAGNESIUM 2.3 mg/dL (1.8-2.4); PHOSPHOROUS 4.1 mg/dL (2.5-4.9); POTASSIUM 3.9 mmol/L (3.5-5.1)
[2019-07-11 10:04] VITALS: PULSE 78
[2019-07-11] MEDS ORDERED: chlordiazePOXIDE HCL 25 MG CAPSULE PO SCH (11:00)
--- NOTE | 2019-07-11 11:37 | EKG ---
Test Reason : Blood Pressure : / mmHG Vent. Rate : 077 BPM Atrial Rate : 077 BPM P-R Int : 142 ms QRS Dur : 088 ms QT Int : 400 ms P-R-T Axes : 070 -76 042 degrees QTc Int : 452 ms NORMAL SINUS RHYTHM POSSIBLE LEFT ATRIAL ENLARGEMENT LEFT ANTERIOR FASCICULAR BLOCK LEFT VENTRICULAR HYPERTROPHY NONSPECIFIC ST ABNORMALITY ABNORMAL ECG WHEN COMPARED WITH ECG OF 07-JUL-2019 17:54, NO SIGNIFICANT CHANGE WAS FOUND Confirmed by JOY VARGAS MD ([id number]) on 07/11/2019 11:37:34 AM Referred By: Confirmed By:JOY VARGAS MD
[2019-07-11 12:13] VITALS: BP 157/101; TEMP 98.5
--- NOTE | 2019-07-11 15:00 | PN ---
Teaching Attending Note Name of Resident: Jw Martin ATTENDING PHYSICIAN STATEMENT I saw and evaluated the patient. I reviewed the resident's note and discussed the case with the resident. I agree with the resident's findings and plan as documented. SUBJECTIVE: Patient is comfortable with no new complains. OBJECTIVE: Vital Signs Temperature 98.5 F 07/11/19 12:12 Pulse Rate 78 07/11/19 12:12 Respiratory Rate 19 07/11/19 12:12 Blood Pressure 157/101 H 07/11/19 12:12 O2 Sat by Pulse Oximetry (%) 98 07/10/19 21:00 GENERAL: The patient is awake, alert, in NAD HEAD: Normal with no signs of trauma. EYES: PERRL, extraocular movements intact, sclera anicteric, conjunctiva clear. ENT: Ears normal, oropharynx clear without exudates, moist mucous membranes. NECK: Trachea midline, full range of motion, supple. LUNGS: Breath sounds equal, clear to auscultation bilaterally, no wheezes, no crackles, no accessory muscle use. HEART: Regular rate and rhythm, S1, S2 without murmur, rub or gallop. ABDOMEN: Soft, NT,ND, normoactive bowel sounds, no guarding, no rebound, no hepatosplenomegaly, no masses. EXTREMITIES: 2+ pulses, warm, well-perfused, no edema. NEUROLOGICAL: Cranial nerves II through XII grossly intact. Normal speech, gait not observed. PSYCH: Normal mood, normal affect. SKIN: Warm, dry, normal turgor, no rashes or lesions noted CBCD WBC 7.4 K/mm3 (4.0-10.0) 07/11/19 08:00 RBC 4.98 M/mm3 (4.00-5.60) 07/11/19 08:00 Hgb 16.8 GM/dL (11.7-16.9) 07/11/19 08:00 Hct 48.6 % (35.4-49) 07/11/19 08:00 MCV 97.6 fl (80-96) H 07/11/19 08:00 MCHC 34.6 g/dl (32.0-35.9) 07/11/19 08:00 RDW 14.2 % (11.9-15.9) 07/11/19 08:00 Plt Count 232 K/MM3 (134-434) 07/11/19 08:00 MPV 8.6 fl (7.5-11.1) 07/11/19 08:00 CMP Sodium 136 mmol/L (136-145) 07/11/19 08:00 Potassium 3.9 mmol/L (3.5-5.1) 07/11/19 08:00 Chloride 98 mmol/L (98-107) 07/11/19 08:00 Carbon Dioxide 29 mmol/L (21-32) 07/11/19 08:00 Anion Gap 9 MMOL/L (8-16) 07/11/19 08:00 BUN 15.0 mg/dL (7-18) 07/11/19 08:00 Creatinine 1.3 mg/dL (0.55-1.3) 07/11/19 08:00 Random Glucose 102 mg/dL (74-106) 07/11/19 08:00 Calcium 9.9 mg/dL (8.5-10.1) 07/11/19 08:00 Total Bilirubin 3.0 mg/dL (0.2-1) H 07/11/19 08:00 AST 19 U/L (15-37) 07/11/19 08:00 ALT 17 U/L (13-61) 07/11/19 08:00 Alkaline Phosphatase 92 U/L (45-117) 07/11/19 08:00 Total Protein 7.8 g/dl (6.4-8.2) 07/11/19 08:00 Albumin 3.9 g/dl (3.4-5.0) 07/11/19 08:00 CARDIAC ENZYMES Creatine Kinase 359 U/L (26-308) H 07/11/19 08:00 Troponin I < 0.02 ng/ml (0.00-0.05) 07/09/19 18:30 Home Medications Medication Instructions Recorded Methadone (Detox) 07/09/19 Chlordiazepoxide [Librium -] 10 mg PO Q12H capsule MDD 300mg 07/11/19 Chlordiazepoxide [Librium -] 10 mg PO Q4H PRN capsule MDD 300mg 07/11/19 Chlordiazepoxide [Librium -] 10 mg PO [id number] capsule MDD 300 07/11/19 Folic Acid - 1 mg PO DAILY tablet 07/11/19 Laboratory Tests 07/09/19 18:30 Opiates Screen Positive A* Methadone Screen Positive A* Barbiturate Screen Negative Phencyclidine Screen Negative Ur Amphetamines Screen Negative MDMA (Ecstasy) Screen Negative Benzodiazepines Screen Positive A* Cocaine Screen Positive A* U Marijuana (THC) Screen Positive A* ASSESSMENT AND PLAN: This is a 53 y/o M with PMHx of polysubstance abuse who [facility] with fever and malaise while detoxing. #Polysubstance abuse detox/ ETOH/drug protocol, on IVF, librium detox continue seizure, fall, and aspiration precautions, discharge to [facility] # HTN Uncontrolled: On Norvasc continue discharge patient to [facility]
--- NOTE | 2019-07-11 15:39 | DS ---
Physical Exam: SUBJECTIVE: OBJECTIVE: Vital Signs Period Temp Pulse Resp BP Sys/Garcia Pulse Ox Last 24 Hr 97.6 F-98.8 F 62-78 18-20 151-189/91-132 98 PHYSICAL EXAM LABS Laboratory Results - last 24 hr 07/11/19 07/11/19 07/11/19 08:00 08:00 08:00 WBC 7.4 RBC 4.98 Hgb 16.8 Hct 48.6 MCV 97.6 H MCH 33.8 H MCHC 34.6 RDW 14.2 Plt Count 232 MPV 8.6 Absolute Neuts (auto) 5.1 Neutrophils % 68.4 Lymphocytes % 20.7 Monocytes % 10.4 H Eosinophils % 0.1 D Basophils % 0.4 Nucleated RBC % 0 Sodium 136 136 Potassium 3.9 4.0 Chloride 98 98 Carbon Dioxide 29 28 Anion Gap 9 10 BUN 15.0 15.0 Creatinine 1.3 1.3 Est GFR (CKD-EPI)AfAm 72.20 72.20 Est GFR (CKD-EPI)NonAf 62.29 62.29 Random Glucose 102 101 Calcium 9.9 9.8 Phosphorus 4.1 Magnesium 2.3 Total Bilirubin 3.0 H AST 19 ALT 17 Alkaline Phosphatase 92 Creatine Kinase 359 H Creatine Kinase Index No Result Required. CK-MB (CK-2) < 1.0 Total Protein 7.8 Albumin 3.9 HOSPITAL COURSE: Date of Admission:07/10/19 This is a 53 y/o M w a polysubstance abuse history sent from [facility] and admitted for fever and malaise in the setting of acute intoxication and withdrawal symptoms. Pt was placed on librium protocol and one dose of methadone was given. Pt eloped on day 2 but pt was supposed to return to [facility] for completion of his detox. Date of Discharge: 07/11/19 Minutes to complete discharge: 35 Discharge Summary Reason For Visit: ACUTE KIDNEY INJURY Condition: Fair - Instructions Diet, Activity, Other Instructions: You were admitted for alcohol detoxification and fevers with high blood pressure. Your blood pressure is now stable. We initiated treatment for your withdrawal symptoms and now you are stable enough for discharge to [facility] [place] where you will be continuing your detox. Please continue your librium taper as follows: Librium 10mg by mouth every 6 hours for one day (starting 07/12) Librium 10mg by mouth every 4 hours as needed for one day (beginning 07/13) Librium 10mg by mouth every 12 hours (beginning 07/14) Librium 10mg by mouth once (beginning 07/15) Please follow up with your primary care doctor in 1 week. Please continue your home medications as prescribed. Return to the emergency room if you have any worsening of your withdrawal symptoms or: chest pain, shortness of breath, fevers, chills. Referrals: Hilda Rincon DO [Staff Physician] - 1 Week Disposition: ELOPED - Home Medications Comprehensive Discharge Medication List: Ambulatory Orders Methadone (Detox) 07/09/19 Chlordiazepoxide [Librium -] 10 mg PO Q12H capsule MDD 300mg 07/11/19 Chlordiazepoxide [Librium -] 10 mg PO Q4H PRN capsule MDD 300mg 07/11/19 Chlordiazepoxide [Librium -] 10 mg PO [id number] capsule MDD 300 07/11/19 Folic Acid - 1 mg PO DAILY tablet 07/11/19 This patient is new to me today: No Emergency Visit: Yes ED Registration Date: 07/10/19 Care time: The patient presented to the Emergency Department on the above date and was hospitalized for further evaluation of their emergent condition. Critical Care patient: No - Discharge Referral Referred to [facility] No ATTENDING PHYSICIAN STATEMENT I saw and evaluated the patient. I reviewed the resident's note and discussed the case with the resident. I agree with the resident's findings and plan as documented. SUBJECTIVE: OBJECTIVE: ASSESSMENT AND PLAN:
[2019-07-12] MEDS ORDERED: chlordiazePOXIDE 5 MG CAPSULE PO SCH (11:00)
[2019-07-13] MEDS ORDERED: chlordiazePOXIDE HCL 10 MG CAPSULE PO PRN
[2019-07-13] MEDS ORDERED: chlordiazePOXIDE 5 MG CAPSULE PO SCH (11:00)
[2019-07-14] MEDS ORDERED: chlordiazePOXIDE HCL 10 MG CAPSULE PO ONE (05:00)
== END 2019-07-11 13:36 | disposition left against medical advice (07) | DRG 722 ==
LOC: JER 16:26 → JERBED 07-10 02:53 → J5S 07-10 04:32
PROVIDERS: ADMIT Internal Medicine; ATTEND Internal Medicine
PROC: HZ2ZZZZ Detoxification Services for Substance Abuse Treatment (ICD-10-PCS; principal; 2019-07-09)
DX: R50.9 Fever, unspecified (principal); R53.81 Other malaise; N17.9 Acute kidney failure, unspecified; I10 Essential (primary) hypertension; F17.210 Nicotine dependence, cigarettes, uncomplicated; E86.0 Dehydration; M62.82 Rhabdomyolysis; F12.10 Cannabis abuse, uncomplicated; F19.10 Other psychoactive substance abuse, uncomplicated; F14.23 Cocaine dependence with withdrawal; F11.23 Opioid dependence with withdrawal
CPT/HCPCS: 36415; 71045-TC-FY; 76705-TC; 80048; 80053; 80307; 81003; 82550; 82553; 83690; 83735; 84100; 84484; 85025; 85610; 85730; 93005; 93010; 99285-25

== ENCOUNTER 2021-02-02 13:20 | Inpatient (IN) | payer BC ==
[2021-02-02 15:30] VITALS: BMI 20.2
[2021-02-02] MEDS ORDERED: LORazepam 1 MG TABLET PO PRN (15:42)
[2021-02-02] MEDS ORDERED: MAGNESIUM HYDROX 2400MG/30ML ORAL SUSPENSION 30 ML CUP PO PRN (15:42)
[2021-02-02] MEDS ORDERED: ACETAMINOPHEN 325 MG TABLET (FP) PO PRN ×2 (15:42)
[2021-02-02] MEDS ORDERED: MAG HYDROX/AL HYDROX/SIMETH 30 ML UNIT-DOSE CUP PO PRN (15:42)
[2021-02-02] MEDS ORDERED: ONDANSETRON *ODT* 4 MG TABLET SL PRN (15:42)
[2021-02-02] MEDS ORDERED: NICOTINE POLACRILEX 2 MG GUM BUC PRN (15:42)
[2021-02-02] MEDS ORDERED: MAGNESIUM CITRATE 300 ML BOTTLE PO PRN (15:42)
[2021-02-02] MEDS ORDERED: BISMUTH SUBSALICYLATE 524 MG/30 ML UD PO PRN (15:42)
[2021-02-02] MEDS ORDERED: IBUPROFEN 400 MG TABLET (FP) PO PRN (15:42)
[2021-02-02] MEDS ORDERED: MENTHOL/PHENOL 1 EACH UD MM PRN (15:42)
[2021-02-02] MEDS ORDERED: AMMONIUM LACTATE 12% LOTION 225 GM BOTTLE TP PRN (15:44)
[2021-02-02] MEDS ORDERED: PNEUMOC 13-VAL CONJ-DIP CRM/PF 0.5 ML DISP.SYRIN IM ONE (16:32)
[2021-02-02] MEDS: METHOCARBAMOL 500 MG TABLET PO PRN (17:33)
[2021-02-02] MEDS: hydrOXYzine PAMOATE 25 MG CAPSULE (FP) PO SCH ×2 (17:33→22:49)
[2021-02-02] MEDS: LORazepam 2 MG TABLET PO SCH ×2 (17:33→22:49)
[2021-02-02] MEDS: MELATONIN 5 MG TABLETS PO SCH (22:49)
[2021-02-02] MEDS: THIAMINE HCL 100 MG TABLET (FP) PO SCH (22:49)
[2021-02-03] MEDS: hydrOXYzine PAMOATE 25 MG CAPSULE (FP) PO SCH ×5 (06:14→22:50)
[2021-02-03] MEDS: LORazepam 2 MG TABLET PO SCH ×4 (06:14→22:50)
[2021-02-03] MEDS: PRENATAL VITAMINS W/ FOLIC ACID TABLET (FP) PO SCH (10:37)
[2021-02-03] MEDS: METHADONE HCL 10 MG TABLET PO SCH (10:37)
[2021-02-03 10:48] LABS: HEMOGLOBIN 13.5 GM/dL (11.7-16.9); MCH 33.1 pg (25.7-33.7); MCHC 33.8 g/dl (32.0-35.9); MEAN CELL VOLUME 97.9 fl (80-96); MEAN PLT VOLUME 9.3 fl (7.5-11.1); PLATELET COUNT 202 K/MM3 (134-434); RBC 4.09 M/mm3 (4.00-5.60); RDW 13.9 % (11.9-15.9); WHITE BLOOD COUNT 6.4 K/mm3 (4.0-10.0)
[2021-02-03 11:31] LABS: ALBUMIN 3.5 g/dl (3.4-5.0)
[2021-02-03 11:32] LABS: BLOOD UREA NITROGEN 17.9 mg/dL (7-18); CALCIUM 9.3 mg/dL (8.5-10.1)
[2021-02-03 11:33] LABS: BILIRUBIN,TOTAL 0.5 mg/dL (0.2-1); TOT PROT 7.4 g/dl (6.4-8.2)
[2021-02-03 11:35] LABS: CREATININE 1.6 mg/dL (0.55-1.3)
[2021-02-03 11:44] LABS: HIV INTERPRETATION NEGATIVE (NEGATIVE)
[2021-02-03] MEDS ORDERED: PNEUMOCOCCAL 23 VACCINE 0.5 ML VIAL IM ONE (12:00)
[2021-02-03] MEDS ORDERED: FLU VACCINE (FLULAVAL) PF 60 MCG/0.5 ML SYRINGE 2020-2021 IM ONE (12:00)
[2021-02-03] MEDS: THIAMINE HCL 100 MG TABLET (FP) PO SCH (22:50)
[2021-02-03] MEDS: MELATONIN 5 MG TABLETS PO SCH (22:50)
[2021-02-04] MEDS: METHADONE HCL 10 MG TABLET PO SCH (07:07)
[2021-02-04] MEDS: LORazepam 1 MG TABLET PO SCH ×4 (07:07→22:30)
[2021-02-04] MEDS: hydrOXYzine PAMOATE 25 MG CAPSULE (FP) PO SCH ×5 (07:08→22:30)
[2021-02-04] MEDS: PRENATAL VITAMINS W/ FOLIC ACID TABLET (FP) PO SCH (11:07)
[2021-02-04] MEDS: MELATONIN 5 MG TABLETS PO SCH (22:30)
[2021-02-04] MEDS: THIAMINE HCL 100 MG TABLET (FP) PO SCH (22:31)
[2021-02-05] MEDS ORDERED: LORazepam 0.5 MG TABLET PO PRN
[2021-02-05] MEDS: LORazepam 0.5 MG TABLET PO SCH ×4 (04:19→22:22)
[2021-02-05] MEDS: hydrOXYzine PAMOATE 25 MG CAPSULE (FP) PO SCH ×2 (05:34→10:42)
[2021-02-05] MEDS: METHADONE HCL 10 MG TABLET PO SCH (05:34)
[2021-02-05] MEDS: PRENATAL VITAMINS W/ FOLIC ACID TABLET (FP) PO SCH (10:42)
[2021-02-05] MEDS ORDERED: hydrOXYzine PAMOATE 25 MG CAPSULE (FP) PO PRN (12:08)
[2021-02-05] MEDS: MELATONIN 5 MG TABLETS PO SCH (22:22)
[2021-02-05] MEDS: THIAMINE HCL 100 MG TABLET (FP) PO SCH (22:22)
[2021-02-06] MEDS: METHOCARBAMOL 500 MG TABLET PO PRN (01:49)
[2021-02-06] MEDS ORDERED: LORazepam 0.5 MG TABLET PO ONE (05:00)
[2021-02-06] MEDS: METHADONE HCL 10 MG TABLET PO SCH (05:20)
[2021-02-06 09:08] VITALS: BP 114/68; PULSE 71; TEMP 96.6
[2021-02-06 12:31] LABS: ALBUMIN 3.2 g/dl (3.4-5.0); BLOOD UREA NITROGEN 27.2 mg/dL (7-18)
[2021-02-06 12:34] LABS: CREATININE 1.6 mg/dL (0.55-1.3)
[2021-02-06 12:36] LABS: BILIRUBIN,TOTAL 0.3 mg/dL (0.2-1); TOT PROT 6.5 g/dl (6.4-8.2)
== END 2021-02-06 09:42 | disposition home or self-care (01) | DRG 773 ==
LOC: YASAS 13:20 → Y3N 16:32
PROVIDERS: ADMIT Allergy & Immunology; ATTEND Allergy & Immunology
PROC: HZ2ZZZZ Detoxification Services for Substance Abuse Treatment (ICD-10-PCS; principal; 2021-02-02)
DX: F10.230 Alcohol dependence with withdrawal, uncomplicated (principal); F11.20 Opioid dependence, uncomplicated; F14.20 Cocaine dependence, uncomplicated; F12.20 Cannabis dependence, uncomplicated; F17.210 Nicotine dependence, cigarettes, uncomplicated; F32.9 Major depressive disorder, single episode, unspecified; N17.9 Acute kidney failure, unspecified; I10 Essential (primary) hypertension; R21 Rash and other nonspecific skin eruption
CPT/HCPCS: 36415; 71046-TC-FY; 80053; 85027; 86780; 87389; 90732; 93005; 93010; C9803; G0008; G0009; Q2036; U0003